=== PATIENT | male | born 1970 | race Hispanic/Latino ===

== ENCOUNTER 2023-02-14 13:09 | Emergency (ER) | payer SELFPAY ==
[~2023-02-14] VITALS: Ht 180.3 cm; Wt 81.8 kg
[2023-02-14 15:20] VITALS: BP 158/93
== END 2023-02-14 15:20 | DRG 914 ==
LOC: ED 13:09
DX: S68.611A Complete traumatic transphalangeal amputation of left index finger, initial encounter (principal); W27.0XXA Contact with workbench tool, initial encounter